=== PATIENT | female | born 1965 | race Caucasian/White ===

== ENCOUNTER → 2018-12-03 | Outpatient (CLI) | payer OTHER ==
[2015-08-04 06:09] VITALS: BP 112/63
[~2018-12-03] MED LIST: ALBU2.5V8 INH; ASCO500T PO; CYCL10TA2 PO; DOCU50CA9 PO; DOXY25TA42 PO; FLUT16SP NS; HYDR-2761 PO; LISI1TAB7 PO; METH-38 PO; MULT-208 PO; OMEP20CA10 PO; OXYC1TAB15 PO; POTA20TA12 PO; SOY155CA PO
--- NOTE | 2018-12-10 13:54 | SLEEP ---
DATE OF STUDY: 12/03/2018 ATTENDING PHYSICIAN: Dr. Sultana Perez. INDICATIONS: The patient is 53 years old who weighs 218 pounds with a BMI of 42.6. The patient's Walcott score was 3. The patient underwent home sleep study performed by [facility]. Total recording time 496 minutes. INTERPRETATION: During the night study, the patient had 55 obstructive apneas, 106 mixed apneas and no central apneas. The patient had 159 hypopneas. The patient's apnea hypopnea index was 38.7 per hour. Nocturnal oximetry study revealed an average oxygen saturation of 90% with the lowest of 74%. 127 minutes were spent in oxygen saturation less than 90%. Mean heart rate was 92 beats per minute. IMPRESSION: 1. Severe sleep apnea-hypopnea syndrome at an apnea-hypopnea index of 38 per hour. 2. Nocturnal hypoxia secondary to obstructive sleep apnea. RECOMMENDATIONS: 1. The patient would benefit from return to the sleep lab for in-lab CPAP titration study. 2. Once the patient is optimally treated, then follow up in 4-6 weeks to assess compliance with CPAP and to document clinical improvement. 3. Weight loss is strongly advised. 4. Avoid LINK MACHINE OPERATOR depressants. 5. Caution regarding driving until symptoms of sleep apnea resolve with the above recommendations. CHRISTINE JAMIL MD DR: BALDOMERO/nts JOB#: [id number] / [id number] Sultana Parmar
== END | disposition home or self-care (01) ==
LOC: RT 08:37
DX: G47.33 Obstructive sleep apnea (adult) (pediatric) (principal); G47.19 Other hypersomnia; R09.02 Hypoxemia
CPT/HCPCS: G0399

== ENCOUNTER → 2018-12-17 | Outpatient (CLI) | payer MEDICARE, OTHER ==
[2015-08-04 06:09] VITALS: BP 112/63
--- NOTE | 2018-12-18 18:34 | SLEEP ---
DATE OF STUDY: 12/17/2018 OBJECTIVE: The patient is a 53-year-old female here for a CPAP titration study. The prior study performed on 12/03/2018, showed severe obstructive sleep apnea and hypopnea with an apnea-hypopnea index of 38.7 events per hour. INTERPRETATION: Sleep architecture is characterized by a sleep efficiency of 93% across the 6.4 hours of recording time. There are normal stage volumes for age. The sleep onset latency is 7.5 minutes. Respiratory monitoring demonstrates a total of 82 events. The patient is titrated on CPAP and at a setting of 17 cm, continues to have an apnea-hypopnea index of 6.5 events per hour of sleep. Periodic limb movements of sleep occur at the rate of 5 per hour, 1 per hour associated with arousal. Occasional sinus tachycardia is observed. IMPRESSION: Abnormal polysomnogram showing partial treatment of severe obstructive sleep apnea using CPAP at 17 cm, Respironics DreamWear nasal cushion, small size. RECOMMENDATIONS: 1. The patient should be started on this setting. 2. Avoid sedatives and alcohol and pursue weight loss. 3. Consider the patient may require a repeat titration study or alternatively a variable BiPAP machine could be provided if the 17 cm fixed pressure setting is not helpful. Thank you for letting us help with the patient's care. STEVO GREENBERG MD DR: SPENCER/eric JOB#: [id number] / [id number] TUSHAR Cr DR
== END | disposition home or self-care (01) ==
LOC: RT 18:29
PROVIDERS: ATTEND Internal Medicine Critical Care Medicine
DX: G47.33 Obstructive sleep apnea (adult) (pediatric) (principal)
CPT/HCPCS: 95810

== ENCOUNTER → 2019-06-30 | Outpatient (CLI) | payer OTHER ==
[2015-08-04 06:09] VITALS: BP 112/63
[~2019-06-30] MED LIST changes: +ASCO-219 PO; -ASCO500T PO; +LISI1TAB20 PO; -LISI1TAB7 PO; +OMEP-229 PO; -OMEP20CA10 PO
--- NOTE | 2019-07-01 10:44 | SLEEP ---
DATE OF STUDY: 06/30/2019 REFERRING PHYSICIAN: Dr. Tushar Perez. The patient is a 53-year-old who weighs 217 pounds with a BMI of 42. The patient's Jackson score was 4. The patient had a previous sleep study and was found to have severe LB at an AHI of 38.7 per hour. The patient had CPAP titration study and was still having respiratory events at 17 cm water with an index of 6.5 per hour. As a result, the patient was referred back for CPAP/BiPAP titration study. During the night study, the patient spent 418 minutes in bed and slept for 380 minutes with a sleep efficiency of 91%. Sleep latency was 2 minutes with a REM latency of 79 minutes. Sleep architecture showed increased stage 1 and stage 2 sleep, normal slow wave and slightly reduced REM sleep, which was 15% of total sleep time. EKG monitoring revealed an average heart rate of 84 beats per minute, no sustained arrhythmias observed. PLMS were seen at index of 32 per hour and 6 per hour caused EEG arousals. The patient was started on CPAP at a pressure of 17 cm of water and titrated up to 20 cm water. At that pressure, the patient slept for 124 minutes including supine and REM sleep and the patient's AHI was 5.3 per hour. Sheet Metal Layout Worker did switch the patient to BiPAP at a pressure of 20/15 and the pressure was increased up to 30/21. The patient's AHI was 0 per hour at that pressure; however, it was a very high BiPAP pressure and I think that the patient did reasonably well at CPAP at 20 cm water with an AHI of 5.3 per hour and oxygen saturation remained above 88%. This should be tried as a final therapeutic pressure. IMPRESSION: 1. Severe sleep apnea diagnosed previously. 2. Moderate periodic limb movements. RECOMMENDATIONS: 1. CPAP at 20 cm water should be used on a nightly basis. 2. Follow up in 4-6 weeks to assess compliance with CPAP and to document clinical improvement. 3. If the patient does not tolerate higher CPAP pressure or patient's AHI on the download data remains more than 5 per hour, then patient can be placed on auto BiPAP at a maximum IPAP pressure of 25 with a minimum EPAP pressure of 18 and pressure support of 4. 4. Weight loss is advised. 5. Avoid COVER STRIPPER depressants. 6. Cautioned regarding driving until symptoms of sleep apnea resolve with the above recommendations. CHRISTINE JAMIL MD DR: BALDOMERO/eric JOB#: [id number] / [id number] TUSHAR Hicks MD
== END | disposition home or self-care (01) ==
LOC: RT 19:09
PROVIDERS: ATTEND Family Medicine
DX: G47.33 Obstructive sleep apnea (adult) (pediatric) (principal); G47.61 Periodic limb movement disorder
CPT/HCPCS: 95811